=== PATIENT | male | born 1965 | race Caucasian/White ===

== ENCOUNTER 2018-07-13 17:00 | Emergency (ER) | payer MEDICAID ==
[~2018-07-13] VITALS: Ht 177.8 cm; Wt 97.5 kg
[2018-07-13 17:05] VITALS: BP 141/89
--- NOTE | 2018-07-13 17:10 | NUR ---
PT AMBULATED TO ER BED 12
--- NOTE | 2018-07-13 17:12 | NUR ---
53 Y/O M BIB FRIEND WITH C/O LEFT EAR PAIN X 2 DAYS. -N/V/D. PT ALSO STATES HE HAS PAIN ON THE LEFT FOREHEAD X 1 WEEK. AAOX4, PERRL, WITH EVEN AND STEADY GAIT; PT DENIES ANY FEVER, CP, SOB, OR COUGH AT THIS TIME; PT STATES 7/10 PAIN AT THIS TIME; VSS; PATIENT POSITIONED FOR COMFORT; HOB ELEVATED; BEDRAILS UP X2; BED DOWN. PMH: NONE RX: CITIZ[place]
[2018-07-13 18:04] VITALS: BP 135/85
--- NOTE | 2018-07-13 18:05 | NUR ---
Patient discharged with v/s stable. Written and verbal after care instructions given and explained. Patient alert, oriented and verbalized understanding of instructions. Ambulatory with steady gait. All questions addressed prior to discharge. ID band removed. Patient advised to follow up with PMD. Rx of ACYCLOVIR, NORCO, PREDNISONE given. Patient educated on indication of medication including possible reaction and side effects. Opportunity to ask questions provided and answered.
== END 2018-07-13 18:05 | disposition home or self-care (01) ==
LOC: MED 17:00
DX: B02.9 Zoster without complications (principal)
CPT/HCPCS: 99283